=== PATIENT | female | born 1965 | race Two or more races ===

== ENCOUNTER 2022-10-09 20:29 | Emergency (ER) | payer MEDICAID, OTHER ==
[~2022-10-09] VITALS: Ht 165.1 cm; Wt 71.2 kg
--- NOTE | 2022-10-09 20:58 | NUR ---
[id number]. DRINKING IN A BAR. CALLED IN BY BAR JEWELRY TECHNICIAN. PT IS AWAKE AND ALERT ADMITS TO DRINKING. WANTS TO GO HOME. WILL COMMUNICATION SPEC PT.
[2022-10-09] MEDS ORDERED: KETOROLAC TROMETHAMINE INJ 30 MG/ML VIAL ONE (21:04)
--- NOTE | 2022-10-09 21:15 | NUR ---
DR. ALINA TAVERAS WITH PT FOR EVAL
--- NOTE | 2022-10-09 22:17 | NUR ---
PT AWAITING FOR TO PICK HER UP.
--- NOTE | 2022-10-10 02:47 | NUR ---
PATIENT IS AWAKE, ALERT AND OX4. DENIED SI/ HI. AMBULATORY WITH STEADDY GAITS AND STABLE VS. REPORTED FEELING WELL. MEDICALLY CLEAR FOR D/C PER MD.
--- NOTE | 2022-10-10 03:06 | NUR ---
Patient discharged to home in stable condition. PT refused Written and verbal after care instructions given.
[2022-10-10 03:07] VITALS: BP 115/71
== END 2022-10-10 03:07 | disposition home or self-care (01) ==
LOC: ER 20:29 → EDBD 20:29 → ER 10-10 03:07
DX: F10.129 Alcohol abuse with intoxication, unspecified (principal); Y90.9 Presence of alcohol in blood, level not specified
CPT/HCPCS: J1885

== ENCOUNTER 2022-11-03 20:15 | Inpatient (IN) | payer MEDICAID ==
[~2022-11-03] VITALS: Ht 162.6 cm; Wt 82.6 kg
[2022-11-03] MEDS ORDERED: CHLORDIAZEPOXIDE HCL 25 MG CAPSULE ONE (20:47)
--- NOTE | 2022-11-03 20:58 | NUR ---
COVID SWAB DONE AND SENT TO LAB
[2022-11-03] MEDS ORDERED: CHLORDIAZEPOXIDE HCL 25 MG CAPSULE PO ONE (21:00)
[2022-11-03] MEDS ORDERED: IV NS 0.9% 1,000 ML BAG IV ONE (21:00)
--- NOTE | 2022-11-03 21:06 | NUR ---
EPIC PANEL PAGED
[2022-11-03 21:10] LABS: BASOPHILS % (AUTO) 0.3 % (0.0-2.0); EOSINOPHILS % (AUTO) 0.1 % (0.0-6.0); HEMATOCRIT 42 % (33-45); HEMOGLOBIN 14.3 g/dL (11.5-14.8); LYMPHOCYTES # (AUTO) 1.7 K/uL (0.8-4.8); LYMPHOCYTES % (AUTO) 15.2 % (20.0-44.0); MEAN CORPUSCULAR HGB CONC 34 g/dl (31.0-36.0); MEAN CORPUSCULAR VOLUME 100 fL (82-100); MONOCYTES # (AUTO) 0.8 K/uL (0.1-1.30); MONOCYTES % (AUTO) 7.1 % (2.0-12.0); NEUTROPHILS # (AUTO) 8.4 K/uL (1.8-8.9); NEUTROPHILS % (AUTO) 77.3 % (43.0-81.0); PLATELET COUNT (AUTO) 183 K/uL (150-450); WHITE BLOOD COUNT (AUTO) 10.9 K/uL (4.3-11.0)
[2022-11-03] MEDS ORDERED: LORAZEPAM INJ 2 MG/ML VIAL IV PRN (21:30)
[2022-11-03] MEDS ORDERED: MORPHINE SULFATE INJ 2 MG/ML DISP.SYRIN IV PRN (21:30)
[2022-11-03] MEDS ORDERED: ENOXAPARIN SODIUM 40 MG/0.4 ML DISP.SYRIN SQ SCH (21:30)
[2022-11-03] MEDS ORDERED: ONDANSETRON HCL/PF 4 MG/2 ML VIAL IVP PRN (21:30)
[2022-11-03] MEDS ORDERED: ACETAMINOPHEN 325 MG TABLET PO PRN (21:30)
[2022-11-03] MEDS ORDERED: hydrALAZINE HCL IV 20 MG VIAL IV PRN (21:30)
[2022-11-03] MEDS ORDERED: IV NS 0.9% 1,000 ML IV SCH (21:30)
[2022-11-03 21:32] LABS: ALANINE AMINOTRANSFERASE 45 U/L (12-78); ALBUMIN 3.8 g/dL (3.4-5.0); ALCOHOL, BLOOD < 3 mg/dL (0-0); ALKALINE PHOSPHATASE 70 U/L (46-116); ASPARTATE AMINOTRANSFERASE 87 U/L (15-37); BILIRUBIN,DIRECT 0.5 mg/dL (0.0-0.2); BILIRUBIN,TOTAL 1.6 mg/dL (0.2-1.0); CALCIUM, SERUM 8.2 mg/dL (8.5-10.1); CARBON DIOXIDE 25 mmol/L (21-32); CHLORIDE 93 mmol/L (98-107); CREATININE 1.3 mg/dL (0.6-1.3); GLUCOSE 268 mg/dL (74-106); SODIUM SERUM 133 mmol/L (136-145); TOTAL PROTEIN, SERUM 7.2 g/dL (6.4-8.2); UREA NITROGEN, BLOOD 17 mg/dL (7-18)
[2022-11-03 21:35] LABS: POTASSIUM 2.7 mmol/L (3.5-5.1)
--- NOTE | 2022-11-03 21:37 | NUR ---
CRITICAL RESULT OF S.K 2.7. RECEIVED REPORT FROM LAB SUSANNAH. AWARE
--- NOTE | 2022-11-03 21:57 | NUR ---
BED 324-2
[2022-11-03] MEDS ORDERED: POTASSIUM CHLORIDE 20 MEQ TAB.PRT.SR PO ONE ×2 (22:14→22:30)
--- NOTE | 2022-11-03 22:30 | NUR ---
URINE COLLECTED, SENT TO LAB
[2022-11-03 22:35] VITALS: BP 167/16
--- NOTE | 2022-11-03 22:43 | NUR ---
PT TRANSFERRED TO TELE 324-2 VIA ACLS PROTOCOL. REPORT GIVEN TO DONAVAN PAIGE FOR CONTINUATION OF CARE
--- NOTE | 2022-11-03 23:00 | NUR ---
cone cleaner notes Received Pt from ER nurse GRECIA Grigsby. Pt is alert and orientedX4. on room air. No SOB. No S/S of distress noted. Pt denies any pain at this time. Tele monitor showed S. tachy Hr at 108. IV site at L forearm# 20 is clean, intact and SL. IV site at R hand# 22 is clean, intact and flushes well. Pt refuses skin assessment. Explained risks and benefits. Pt belonging is checked by BIJAN Nunez. Pt mentioned Pt wanted to go home in the morning 0900 am. Explained risks and benefits. Pt is aware about AMA. Reorient Pt to the room and the use of call light. Pt verbalize understanding. safety precautions is maintained. Bed at low position, brakes locked, side rails upX3 and padded, hob elevated, bed alarm is on and call light is within reach. Will continue to monitor.
--- NOTE | 2022-11-03 23:06 | NUR ---
RN notes Potassium was replaced in ER by GRECIA Grigsby
[2022-11-03 23:15] VITALS: BP 167/99
--- NOTE | 2022-11-03 23:35 | NUR ---
RN notes Dr. Park at the bedside. Pt informed to MD that Pt wanted to leave tomorrow in the morning by 0900. MD explained risks and benefits. Pt is aware and informed about AMA. MD ordered to prepare AMA form. Charge nurse is aware and informed.
--- NOTE | 2022-11-04 00:52 | NUR ---
RN notes Pt is feeling anxious and worried about her job. Pt's HR 120. Administered ativan as ordered. safety precautions is maintained. will continue to monitor.
[2022-11-04 05:00] VITALS: BP 138/89
--- NOTE | 2022-11-04 06:35 | NUR ---
RN closing notes Pt is resting in bed comfortbaly. Pt is alert and orientedX4. on room air. No SOB. No S/S of distress noted. Tele monitor showed SR with PAC hr at IV site at L forearm# 20 is clean, intact and SL. IV site at R hand# 22 is clean, intact and infusing well NS@ 75 ml/hr. Routine meds were given as ordered. Kept Pt clean, dry and comfortable. safety precautions is maintained. Bed at low position, brakes locked, side rails upX3 and padded, hob elevated, bed alarm is on and call light is within reach. Nolan endorse to am nurse for THERON.
[2022-11-04 07:07] LABS: BASOPHILS # (AUTO) 0.1 K/uL (0.0-0.2); BASOPHILS % (AUTO) 0.6 % (0.0-2.0); EOSINOPHILS % (AUTO) 0.9 % (0.0-6.0); HEMATOCRIT 41 % (33-45); HEMOGLOBIN 13.8 g/dL (11.5-14.8); LYMPHOCYTES # (AUTO) 3.2 K/uL (0.8-4.8); LYMPHOCYTES % (AUTO) 30.7 % (20.0-44.0); MEAN CORPUSCULAR HGB CONC 34 g/dl (31.0-36.0); MEAN CORPUSCULAR VOLUME 102 fL (82-100); NEUTROPHILS # (AUTO) 5.9 K/uL (1.8-8.9); NEUTROPHILS % (AUTO) 57.8 % (43.0-81.0); PLATELET COUNT (AUTO) 156 K/uL (150-450); RED BLOOD CELL COUNT(AUTO) 4.01 MIL/uL (4.0-5.2); WHITE BLOOD COUNT (AUTO) 10.3 K/uL (4.3-11.0)
[2022-11-04 07:23] LABS: BILIRUBIN,TOTAL 1.3 mg/dL (0.2-1.0); CALCIUM, SERUM 7.3 mg/dL (8.5-10.1); CREATININE 0.8 mg/dL (0.6-1.3); PHOSPHORUS 4.1 mg/dL (2.5-4.9); POTASSIUM 3.3 mmol/L (3.5-5.1); TOTAL PROTEIN, SERUM 6.4 g/dL (6.4-8.2)
--- NOTE | 2022-11-04 08:00 | NUR ---
RN NOTES: ENDORSED BY PM RN, PT WISHES TO AMA, AWARE. RN EXPLAINED RISKS OF LEAVING AMA, PT VERBALIZED UNDERSTANDING, STILL WANTS TO LEAVE, SIGNED AMA PAPER, GIVEN COPY, ORIGINAL IN CHART, BELONGINGS ALL ACCOUNTED FOR. PT LEFT UNIT VIA WHEELCHAIR, ESCORTED BY RN TO LOBBY, MET BY SPOUSE, LEFT VIA PRIVATE CAR.
[2022-11-04 08:47] LABS: MAGNESIUM 1.1 mg/dL (1.8-2.4)
[2022-11-04] MEDS ORDERED: CHLORDIAZEPOXIDE HCL 25 MG CAPSULE PO SCH (09:00)
== END 2022-11-04 08:00 | disposition left against medical advice (07) | DRG 53 ==
LOC: ER 20:21 → TELE 22:23
PROVIDERS: ADMIT Internal Medicine; ATTEND Nurse Practitioner Acute Care
DX: G40.89 Other seizures (principal); F10.131 Alcohol abuse with withdrawal delirium; D68.9 Coagulation defect, unspecified; E87.1 Hypo-osmolality and hyponatremia; E87.6 Hypokalemia; Z20.822 Contact with and (suspected) exposure to COVID-19; I10 Essential (primary) hypertension; Y90.0 Blood alcohol level of less than 20 mg/100 ml; E80.6 Other disorders of bilirubin metabolism; R74.01 Elevation of levels of liver transaminase levels; E83.42 Hypomagnesemia; D64.9 Anemia, unspecified; E87.8 Other disorders of electrolyte and fluid balance, not elsewhere classified
CPT/HCPCS: 36415; 71045-TC; 80048-TC; 80053-TC; 80076-TC; 83735-TC; 84100-TC; 85025-TC; 85730-TC; 87081-TC; C9803; G0378; G0480; J0360; J1650; J2060; J7030

== ENCOUNTER 2023-04-12 16:55 | Emergency (ER) | payer BC, MEDICAID ==
[~2023-04-12] VITALS: Ht 162.6 cm; Wt 74.8 kg
[2023-04-12 17:13] VITALS: BP 125/76; TEMP 98.7; O2SAT 99
== END 2023-04-12 18:51 | disposition left against medical advice (07) ==
LOC: ER 17:20
DX: F10.229 Alcohol dependence with intoxication, unspecified (principal); I10 Essential (primary) hypertension; Y90.9 Presence of alcohol in blood, level not specified

== ENCOUNTER → 2023-05-02 | Emergency (ER) | payer BC ==
[~2023-05-02] VITALS: Ht 160 cm; Wt 68.0 kg
[~2023-05-02] MED LIST: IV NS 0.9% 1,000 ML BAG IV ONE; IV NS 0.9% 250 ML BAG IV ONE; LORAZEPAM INJ 2 MG/ML VIAL IV ONE; LORAZEPAM INJ 2 MG/ML VIAL ONE; POTASSIUM CL. PREMIX PERIPHER. 100 ML ONE; POTASSIUM CL. PREMIX PERIPHER. 50 ML IV ONE
[2023-05-02 18:09] LABS: BASOPHILS % (AUTO) 0.3 % (0.0-2.0); HEMATOCRIT 47 % (33-45); HEMOGLOBIN 16.2 g/dL (11.5-14.8); LYMPHOCYTES % (AUTO) 7.8 % (20.0-44.0); MEAN CORPUSCULAR HEMOGLOBIN 35 PG (26.0-33.0); MEAN CORPUSCULAR HGB CONC 34 g/dl (31.0-36.0); MEAN CORPUSCULAR VOLUME 102 fL (82-100); MONOCYTES # (AUTO) 1.5 K/uL (0.1-1.30); NEUTROPHILS # (AUTO) 10.8 K/uL (1.8-8.9); NEUTROPHILS % (AUTO) 80.9 % (43.0-81.0); PLATELET COUNT (AUTO) 239 K/uL (150-450); RED BLOOD CELL COUNT(AUTO) 4.62 MIL/uL (4.0-5.2); RED CELL DISTRIBUTION WIDTH 14.8 % (11.5-15.0); WHITE BLOOD COUNT (AUTO) 13.3 K/uL (4.3-11.0)
[2023-05-02 18:29] LABS: ALANINE AMINOTRANSFERASE 48 U/L (12-78); ALBUMIN 4.1 g/dL (3.4-5.0); ALCOHOL, BLOOD < 3 mg/dL (0-10); ALKALINE PHOSPHATASE 74 U/L (46-116); ASPARTATE AMINOTRANSFERASE 72 U/L (15-37); BILIRUBIN,DIRECT 0.5 mg/dL (0.0-0.2); BILIRUBIN,TOTAL 1.6 mg/dL (0.2-1.0); CALCIUM, SERUM 8.8 mg/dL (8.5-10.1); CARBON DIOXIDE 20 mmol/L (21-32); CHLORIDE 85 mmol/L (98-107); CREATININE 1.9 mg/dL (0.6-1.3); GLUCOSE 279 mg/dL (74-106); POTASSIUM 2.9 mmol/L (3.5-5.1); SODIUM SERUM 131 mmol/L (136-145); TOTAL PROTEIN, SERUM 8.3 g/dL (6.4-8.2); UREA NITROGEN, BLOOD 23 mg/dL (7-18)
[2023-05-02 18:37] LABS: THYROID STIMULATING HORMONE 3.253 uIU/mL (0.358-3.74)
[2023-05-02 21:29] LABS: AMPHETAMINE, URINE NEGATIVE (NEGATIVE); BARBITURATE, URINE NEGATIVE (NEGATIVE); BENZODIAZEPINE, URINE NEGATIVE (NEGATIVE); BILIRUBIN,URINE 2+ (NEGATIVE); BLOOD, URINE 2+ Ery/uL (NEGATIVE); CANNABINOID, URINE NEGATIVE (NEGATIVE); COCCAINE, URINE NEGATIVE (NEGATIVE); COLOR,URINE YELLOW (YELLOW); KETONES,URINE 1+ mg/dL (NEGATIVE); LEUKOCYTE ESTERASE ,URINE 2+ (NEGATIVE); NITRITE, URINE POSITIVE (NEGATIVE); OPIATE, URINE NEGATIVE (NEGATIVE); PHENCYCLIDINE SCREEN,URINE NEGATIVE (NEGATIVE); PROTEIN,URINE 3+ mg/dl (NEGATIVE); UGLUCOSE NEGATIVE (NEGATIVE)
[2023-05-02 21:30] LABS: APPEARANCE,URINE SLIGHTLY HAZY (CLEAR)
[2023-05-02 21:42] LABS: ADD URINE CULTURE YES; BACTERIA,URINE Many /HPF (None Seen); SQUAMOUS EPITHELIAL CELL,UR Moderate /HPF (None Seen); WBC,URINE 51-80 /HPF (0-3)
[2023-05-03 07:46] VITALS: BP 120/62; TEMP 97.9; O2SAT 98
== END | disposition home or self-care (01) ==
LOC: ER 17:21
DX: F10.239 Alcohol dependence with withdrawal, unspecified (principal); E86.0 Dehydration; E87.6 Hypokalemia; E87.1 Hypo-osmolality and hyponatremia; I10 Essential (primary) hypertension
CPT/HCPCS: 99285; 96365; 96361; 96366; 96375; 93005; 71045; 85025; 80048; 87086; 80076; 81001; 36415; 84443; 80320; 80307; J2060; J7030 ×2; J3480; G0480

== ENCOUNTER 2024-01-02 14:27 | Emergency (ER) | payer BC ==
[~2024-01-02] VITALS: Ht 167.6 cm; Wt 73.0 kg
[2024-01-02] MEDS ORDERED: ONDANSETRON HCL/PF 4 MG/2 ML VIAL ONE (14:57)
[2024-01-02] MEDS ORDERED: THIAMINE HCL 100 MG TABLET ONE (14:58)
[2024-01-02] MEDS: IV NS 0.9% 1,000 ML BAG IV ONE (15:03)
[2024-01-02] MEDS: THIAMINE HCL 100 MG TABLET PO ONE (15:04)
[2024-01-02] MEDS: ONDANSETRON HCL/PF - ER 4 MG/2 ML VIAL IV ONE (15:04)
[2024-01-02] MEDS ORDERED: PHENOBARBITAL SODIUM 130 MG/ML VIAL ONE (15:07)
[2024-01-02] MEDS: Thiamine 100 MG in IV D5W 50 ML IV SCH (15:14)
[2024-01-02] MEDS ORDERED: PHENOBARBITAL SODIUM 130 MG/ML VIAL IV ONE (15:30)
[2024-01-02] MEDS: PHENOBARBITAL SODIUM 130 MG/ML VIAL IV ONE (15:58)
[2024-01-02] MEDS: PHENOBARBITAL SODIUM 780 MG in IV NS 0.9% 94 ML IV ONE (16:01)
[2024-01-02] MEDS ORDERED: CHLO25CA22 PO (16:40)
[2024-01-02 17:10] VITALS: BP 128/76; TEMP 98.2; O2SAT 98
== END 2024-01-02 17:11 | disposition home or self-care (01) ==
LOC: ER 14:33
DX: F10.239 Alcohol dependence with withdrawal, unspecified (principal); I10 Essential (primary) hypertension; Z79.899 Other long term (current) drug therapy; Y90.9 Presence of alcohol in blood, level not specified
CPT/HCPCS: 99284; 96365; 96367; 96375; J2560; J2405; J7060; J7030 ×3; J3411

== ENCOUNTER 2024-01-29 20:50 | Emergency (ER) | payer BC ==
[~2024-01-29] VITALS: Ht 167.6 cm; Wt 72.6 kg
[~2024-01-29 20:50] MED LIST changes: +CHLO25CA22 PO; -IV NS 0.9% 1,000 ML BAG IV ONE; -IV NS 0.9% 250 ML BAG IV ONE; -LORAZEPAM INJ 2 MG/ML VIAL IV ONE; -LORAZEPAM INJ 2 MG/ML VIAL ONE; -POTASSIUM CL. PREMIX PERIPHER. 100 ML ONE; -POTASSIUM CL. PREMIX PERIPHER. 50 ML IV ONE
[2024-01-30] MEDS ORDERED: ACETAMINOPHEN ES 500 MG TABLET ONE
[2024-01-30] MEDS: ACETAMINOPHEN ES 500 MG TABLET PO ONE (00:02)
[2024-01-30 04:44] VITALS: BP 106/70; TEMP 98.1; O2SAT 100
== END 2024-01-30 04:45 | disposition home or self-care (01) ==
LOC: ER 20:51
DX: G89.29 Other chronic pain (principal); M54.50 Low back pain, unspecified; I10 Essential (primary) hypertension; Z79.899 Other long term (current) drug therapy
CPT/HCPCS: 72100-TC

== ENCOUNTER 2024-01-31 16:02 | Emergency (ER) | payer BC ==
[~2024-01-31] VITALS: Ht 167.6 cm; Wt 72.6 kg
[2024-01-31 17:09] VITALS: BP 110/63; TEMP 209.5; O2SAT 98
== END 2024-01-31 17:14 | disposition home or self-care (01) ==
LOC: ER 16:15
DX: F10.229 Alcohol dependence with intoxication, unspecified (principal); R56.9 Unspecified convulsions; I10 Essential (primary) hypertension; Y90.9 Presence of alcohol in blood, level not specified

== ENCOUNTER 2024-12-07 18:49 | Emergency (ER) | payer BC ==
[~2024-12-07] VITALS: Ht 167.6 cm; Wt 72.6 kg
[2024-12-07] MEDS ORDERED: KETOROLAC TROMETHAMINE INJ 30 MG/ML VIAL ONE (19:35)
[2024-12-07] MEDS: KETOROLAC TROMETHAMINE INJ 30 MG/ML VIAL IM ONE (19:54)
[2024-12-07 20:00] VITALS: BP 110/71; TEMP 98; O2SAT 99
[2024-12-07] MEDS ORDERED: MORPHINE SULFATE INJ 4 MG/ML DISP.SYRIN ONE (20:06)
[2024-12-07 20:10] LABS: BASOPHILS # (AUTO) 0.1 K/uL (0.0-0.2); BASOPHILS % (AUTO) 0.6 % (0.0-2.0); EOSINOPHILS # (AUTO) 0.1 K/uL (0.0-0.7); EOSINOPHILS % (AUTO) 1.3 % (0.0-6.0); HEMATOCRIT 41 % (33-45); HEMOGLOBIN 13.7 g/dL (11.5-14.8); LYMPHOCYTES # (AUTO) 2.1 K/uL (0.8-4.8); MEAN CORPUSCULAR HEMOGLOBIN 33 PG (26.0-33.0); MEAN CORPUSCULAR HGB CONC 34 g/dl (31.0-36.0); MEAN CORPUSCULAR VOLUME 98 fL (82-100); MONOCYTES # (AUTO) 0.8 K/uL (0.1-1.30); MONOCYTES % (AUTO) 8.1 % (2.0-12.0); NEUTROPHILS # (AUTO) 6.4 K/uL (1.8-8.9); PLATELET COUNT (AUTO) 295 K/uL (150-450); RED BLOOD CELL COUNT(AUTO) 4.15 MIL/uL (4.0-5.2); RED CELL DISTRIBUTION WIDTH 16.6 % (11.5-15.0); WHITE BLOOD COUNT (AUTO) 9.3 K/uL (4.3-11.0)
[2024-12-07 20:23] LABS: INR 0.99 (0.91-1.10); PARTIAL THROMBOPLASTIN TIME 24.3 SEC (24.3-34.3); PROTHROMBIN TIME 10.5 SECS (9.2-11.1)
[2024-12-07 20:36] LABS: CALCIUM, SERUM 8.3 mg/dL (8.5-10.1); CREATININE 0.8 mg/dL (0.6-1.3); POTASSIUM 3.1 mmol/L (3.5-5.1)
[2024-12-07] MEDS: MORPHINE SULFATE INJ 2 MG/ML DISP.SYRIN IV ONE (20:38)
== END 2024-12-08 01:18 | disposition short-term general hospital (02) ==
LOC: ER 18:55
DX: S42.291A Other displaced fracture of upper end of right humerus, initial encounter for closed fracture (principal); I10 Essential (primary) hypertension; F10.129 Alcohol abuse with intoxication, unspecified; Z79.899 Other long term (current) drug therapy; W18.39XA Other fall on same level, initial encounter; Y93.89 Activity, other specified; Y92.89 Other specified places as the place of occurrence of the external cause; Y99.8 Other external cause status; Y90.8 Blood alcohol level of 240 mg/100 ml or more
CPT/HCPCS: 99285; 96372; 96374; 93005; 71045; 73030; 85025; 80048; 36415; 85730; 80320; 98960; J2270; J1885; G0480

== ENCOUNTER 2025-04-18 12:24 | Inpatient (IN) | payer BC ==
[~2025-04-18] VITALS: Ht 162.6 cm; Wt 70.8 kg
[2025-04-18] MEDS: IV NS 0.9% 1,000 ML BAG IV ONE (12:58)
[2025-04-18 13:36] LABS: PLATELET COUNT (AUTO) 209 K/uL (150-450); RED BLOOD CELL COUNT(AUTO) 3.75 MIL/uL (4.0-5.2); RED CELL DISTRIBUTION WIDTH 19.0 % (11.5-15.0); WHITE BLOOD COUNT (AUTO) 8.2 K/uL (4.3-11.0)
[2025-04-18 13:45] LABS: CALCIUM, SERUM 7.6 mg/dL (8.5-10.1); CREATININE 1.0 mg/dL (0.6-1.3); SODIUM SERUM 133 mmol/L (136-145); UREA NITROGEN, BLOOD 11 mg/dL (7-18)
[2025-04-18 13:51] LABS: PREGNANCY TEST URINE QUAL NEGATIVE (NEGATIVE)
[2025-04-18 14:05] LABS: NT-PRO BNP 9327.0 pg/mL (0-125)
[2025-04-18 14:16] LABS: LACTIC ACID 3.5 mmol/L (0.4-2.0)
[2025-04-18 14:17] LABS: ASPARTATE AMINOTRANSFERASE 157 U/L (15-37); TOTAL PROTEIN, SERUM 7.4 g/dL (6.4-8.2)
[2025-04-18] MEDS ORDERED: IV NS 0.9% 1,000 ML BAG IV ONE (14:30)
[2025-04-18] MEDS: Magnesium 1GM/D5W 100ML PREMIX 100 ML IV SCH ×2 (15:30→23:14)
[2025-04-18 15:32] LABS: INR 1.1 (0.91-1.10)
[2025-04-18] MEDS: PIPERACILLIN /TAZOBACTAM 3.375 G in IV D5W 50 ML IV ONE (15:50)
[2025-04-18] MEDS: IV LR 1000 ML 1,000 ML IV ONE (16:00)
[2025-04-18] MEDS ORDERED: Magnesium 1GM/D5W 100ML PREMIX 300 ML IV ONE (16:07)
[2025-04-18] MEDS ORDERED: MORPHINE SULFATE INJ 2 MG/ML DISP.SYRIN IV PRN (16:30)
[2025-04-18] MEDS ORDERED: ACETAMINOPHEN 325 MG TABLET PO PRN (16:30)
[2025-04-18] MEDS ORDERED: ONDANSETRON HCL/PF 4 MG/2 ML VIAL IVP PRN (16:30)
[2025-04-18] MEDS ORDERED: hydrALAZINE HCL IV 20 MG VIAL IV PRN (16:30)
[2025-04-18] MEDS ORDERED: DOCUSATE SODIUM LIQ 100 MG/10 ML UDC PO SCH (17:00)
[2025-04-18] MEDS ORDERED: LORAZEPAM INJ 2 MG/ML VIAL ONE (18:10)
[2025-04-18] MEDS: LORAZEPAM INJ 2 MG/ML VIAL IV ONE (18:15)
[2025-04-18] MEDS: LEVETIRACETAM (500MG) 1,000 MG in IV NS 0.9% 90 ML IV SCH (18:30)
[2025-04-18] MEDS ORDERED: POTASSIUM CHLORIDE 20 MEQ TAB.PRT.SR PO ONE (19:29)
[2025-04-18] MEDS: POTASSIUM CHLORIDE 20 MEQ TAB.PRT.SR PO ONE (19:34)
[2025-04-18 20:45] VITALS: BP 134/93; TEMP 99.2; O2SAT 99
[2025-04-18 21:00] VITALS: BP 144/98
[2025-04-18] MEDS: HEPARIN SODIUM, PORCINE 5000 UNITS/1 ML VIAL SQ SCH (21:51)
[2025-04-18 22:00] VITALS: BP 141/86; O2SAT 96
[2025-04-18 22:37] LABS: CALCIUM, SERUM 6.7 mg/dL (8.5-10.1); CREATININE 0.9 mg/dL (0.6-1.3); PHOSPHORUS 2.4 mg/dL (2.5-4.9); SODIUM SERUM 138.0 mmol/L (136-145); UREA NITROGEN, BLOOD 9.0 mg/dL (7-18)
[2025-04-18 23:00] VITALS: BP 155/88; O2SAT 100
[2025-04-19] VITALS (10 sets, daily range): BP systolic 119–146; BP diastolic 69–125; TEMP 97.9–98.8; O2SAT 95–100
[2025-04-19 04:39] LABS: PLATELET COUNT (AUTO) 165 K/uL (150-450); RED BLOOD CELL COUNT(AUTO) 3.22 MIL/uL (4.0-5.2); RED CELL DISTRIBUTION WIDTH 19.0 % (11.5-15.0); WHITE BLOOD COUNT (AUTO) 8.6 K/uL (4.3-11.0)
[2025-04-19 04:58] LABS: ASPARTATE AMINOTRANSFERASE 137.0 U/L (15-37); CALCIUM, SERUM 7.2 mg/dL (8.5-10.1); CREATININE 0.8 mg/dL (0.6-1.3); PHOSPHORUS 2.2 mg/dL (2.5-4.9); SODIUM SERUM 135.0 mmol/L (136-145); TOTAL PROTEIN, SERUM 6.3 g/dL (6.4-8.2); UREA NITROGEN, BLOOD 9.0 mg/dL (7-18)
[2025-04-19] MEDS: POLYETHYLENE GLYCOL 3350 17 GM POWD.PACK PO SCH (08:17)
[2025-04-19] MEDS ORDERED: Calcium Gluconate 1GM/10ML 9.3 MEQ in IV NS 0.9% 100 ML IV ONE (10:00)
[2025-04-19] MEDS ORDERED: LEVETIRACETAM (250 MG) 250 MG TABLET PO SCH (11:00)
== END 2025-04-19 09:20 | disposition left against medical advice (07) | DRG 53 ==
LOC: ER 12:30 → ICU 19:28
PROVIDERS: ADMIT Internal Medicine; ATTEND Internal Medicine
DX: R56.9 Unspecified convulsions (principal); E87.20 Acidosis, unspecified; R62.7 Adult failure to thrive; S42.291A Other displaced fracture of upper end of right humerus, initial encounter for closed fracture; E86.0 Dehydration; Z20.822 Contact with and (suspected) exposure to COVID-19; Z53.29 Procedure and treatment not carried out because of patient's decision for other reasons; R53.1 Weakness; F10.10 Alcohol abuse, uncomplicated; W19.XXXA Unspecified fall, initial encounter; Y92.9 Unspecified place or not applicable; R74.01 Elevation of levels of liver transaminase levels; E87.1 Hypo-osmolality and hyponatremia; E83.42 Hypomagnesemia; D75.89 Other specified diseases of blood and blood-forming organs; I10 Essential (primary) hypertension
CPT/HCPCS: 36415; 70450-TC; 70486-TC; 71045-TC; 72125-TC; 73200-TC; 76700-TC; 80048-TC; 80053-TC; 80076-TC; 82140-TC; 82962-TC; 83605-TC; 83735-TC; 83880; 84100-TC; 84439-TC; 84443-TC; 84484-TC; 84703-TC; 85025-TC; 85730-TC; 87081-TC; A4223; G0378; G0480; J0612; J1644; J1953; J2060; J2543; J3475; J7030; J7050; J7060; J7120

== ENCOUNTER 2025-05-26 16:35 | Emergency (ER) | payer BC ==
[~2025-05-26] VITALS: Ht 172.7 cm; Wt 70.8 kg
[2025-05-26 20:38] VITALS: BP 102/68; TEMP 98; O2SAT 97
== END 2025-05-26 20:39 | disposition home or self-care (01) ==
LOC: ER 16:39
DX: S09.90XA Unspecified injury of head, initial encounter (principal); I11.9 Hypertensive heart disease without heart failure; W05.0XXA Fall from non-moving wheelchair, initial encounter; Y93.89 Activity, other specified; Y92.89 Other specified places as the place of occurrence of the external cause; Y99.8 Other external cause status
CPT/HCPCS: 70450-TC; 73502